=== PATIENT | male | born 1965 | race Caucasian/White ===

== ENCOUNTER → 2020-11-04 | Outpatient (CLI) | payer OTHER ==
--- NOTE | 2020-11-04 09:20 | US ---
EXAMINATION TYPE: US duplex aorta DATE OF EXAM: 11/04/2020 COMPARISON: NONE CLINICAL HISTORY: Z82.49 Fm hx ischemic heart disease. Patient is smoker x 30 years; no HTN; father h ad AAA. EXAM MEASUREMENTS: Abdominal Aorta: Proximal: 2.6 x 2.5cm Mid: 2.2 x 2.4cm Distal: 2.0 x 2.2cm Bifurcation: 1.1 x 1.0cm Right Common Iliac Artery; 1.2 x 0.9cm Left Common Iliac Artery. Intimal wall thickening is noted distal aorta. IMPRESSION: 1. Intimal thickening and mild atherosclerotic plaque with no diagnostic evidence of aneurysm.
== END | disposition home or self-care (01) ==
LOC: RADUSWWP 08:26
PROVIDERS: ATTEND Family Medicine
DX: I70.90 Unspecified atherosclerosis (principal)
CPT/HCPCS: 93979